=== PATIENT | female | born 1970 | race Caucasian/White ===

== ENCOUNTER 2019-02-25 08:07 | Day surgery (SDC) | payer MEDICAID ==
[~2019-02-25 08:07] MED LIST: Dextrose 5%-0.45% NaCl 1,000 ML IV SCH; Midazolam 1 MG/ML 2 ML SDV ONE; fentaNYL 100 MCG/2 ML SDV ONE
[2019-02-25] MEDS ORDERED: fentaNYL 100 MCG/2 ML SDV IV ONE ×3 (08:08→09:40)
[2019-02-25] MEDS ORDERED: Midazolam 1 MG/ML 2 ML SDV IV ONE ×7 (08:08→09:48)
--- NOTE | 2019-02-25 13:43 | OR ---
DATE: 02/25/2019 PREOPERATIVE DIAGNOSIS: Screening colonoscopy and occult positive stool cards. POSTOPERATIVE DIAGNOSIS: Screening colonoscopy and occult positive stool cards. PROCEDURE: Total colonoscopy. ANESTHESIA: Conscious sedation with IV Versed and fentanyl. SPECIMEN: None. OPERATIVE FINDINGS: Normal colonoscopy. RECOMMENDATION: Followup screening colonoscopy in 10 years for polyp surveillance. INDICATION FOR PROCEDURE: This 48-year-old female has positive occult cards on her stool sample for blood. She does not notice any rectal bleeding. She has also not had a prior colonoscopy. She is 48 years old. PROCEDURE IN DETAIL: After adequate preparation, a colonoscope was inserted into the rectum. This was easily passed all the way to the cecum. Confirmation of the cecum was made by visualization of the ileocecal valve and palpation of the right lower quadrant. The bowel prep was good. On withdrawal of the scope, no abnormalities were noted. Rectal and anal examination was also normal. Air was suctioned from the colon, and the scope removed. [facility] /[id number] cc: Florida Garza MD
== END 2019-02-25 11:35 | disposition home or self-care (01) ==
LOC: DL.ENDO 08:07
PROVIDERS: ATTEND Surgery
DX: Z12.11 Encounter for screening for malignant neoplasm of colon (principal); R19.5 Other fecal abnormalities
CPT/HCPCS: 45378; J2250; J3010; J7042; G0121